=== PATIENT | female | born 1975 | race Two or more races ===

== ENCOUNTER 2018-01-19 14:00 | Outpatient (AMBR) | payer MEDICAID, SELFPAY ==
--- NOTE | 2018-01-12 11:56 | PT.ODAYNRPT ---
PT Outpatient Daily Note Date of Service: January 12, 2018 OP Daily Note Visit Reasons: left shoulder Outpatient Physical Therapy Treatment Date: 01/12/18 Subjective: pt reported taking pain meds prior to coming to PT. Objective: see flow sheet. Assessment: pt was having some pain and discomfort during ther ex but was able to manage through all exercises. noted full ROM in all planes but still had the pain. some muscle fatigue after completed sets but refused ice pack post ther ex. advised pt to use ice pack at home if needed. educated pt about possible soreness. Plan: continue POC per PT. Length of Time (minutes) of Treatment: 30 Minutes Office Procedures PT Procedures PT Date of Service: 01/12/18 Therapeutic Exercise 30 minutes: Yes
--- NOTE | 2018-01-19 14:38 | PT.ODAYNRPT ---
PT Outpatient Daily Note Date of Service: January 19, 2018 OP Daily Note Visit Reasons: left shoulder Outpatient Physical Therapy Treatment Date: 01/19/18 Subjective: pt very shy upon visit and has very little to none feedback. pt does have to work after treatment. Objective: see flow sheet. Assessment: pt has facial expressions during ther ex but states she can tolerate them. rest breaks in between reps to help with the discomfort. pt is using RTB for exercises and has the ROM but the pain limits her endurance with keep up with her ADLs. ice pack pos ther ex to decrease the pain and discomfort. pt enjoyed the ice pack and advised her to use at home if needed. Plan: continue POC per PT. Length of Time (minutes) of Treatment: 30 Minutes Office Procedures PT Procedures PT Date of Service: 01/12/18 Therapeutic Exercise 30 minutes: Yes PT Procedures PT Date of Service: 01/19/18 Therapeutic Exercise 30 minutes: Yes
== END 2018-01-25 23:59 ==
PROVIDERS: PCP Physician Assistant; Referring Provider Physician Assistant; Visit Provider Physician Assistant
DX: I10 Essential (primary) hypertension (principal)
CPT/HCPCS: 97110

== ENCOUNTER 2024-11-25 08:06 | Emergency (ER) | payer MEDICAID, SELFPAY ==
[2024-11-25 08:07] VITALS: BMI 41.0
--- NOTE | 2024-11-25 08:12 | XR_ITS ---
Examination: Chest PA lateral 2 views Technique: Upright PA lateral chest 2 views Exam date and time: November 25, 2024 at 0835 hours Comparison October 22, 2021 INDICATIONS: Coughing shortness of breath 2 days ago. FINDINGS: Stable small granuloma left upper lobe Normal heart size No pneumonia or pulmonary edema IMPRESSION: No active disease
[2024-11-25 08:16] VITALS: BP 127/83; PULSE 85; RESP 17; TEMP 36.7; O2SAT 95
--- NOTE | 2024-11-25 09:21 | EDNOTE_ITS ---
<Statement entered by Paloma Boss MD - 12/02/24 06:25> As co-signing physician, I was present and available for consult prn. I concur with the plan and care as documented by the midlevel provider. Upper Respiratory Inf. RME/HPI General Chief Complaint: Flu Like Symptoms Stated Complaint: COUGH, WHEEZING AND CHEST PAIN WITH COUGH X2D Time Seen by Provider: 11/25/24 08:12 Arrival date/time: 11/25/24 08:06 49-year-old female presents to the emergency department today for complaints of cough, congestion and wheezing ongoing for the last couple of days patient reports no fever nausea or vomiting Limitations: no limitations Related Data Home Medications ?Medication ?Instructions ?Recorded ?Confirmed ergocalciferol (vitamin D2) 1,250 1,250 mcg PO QWEEK 0 04/11/22 04/11/22 mcg (50,000 unit) capsule (Vitamin D2) levothyroxine 50 mcg tablet 50 mcg PO QDAY 04/11/22 Previous Rx's ?Medication ?Instructions ?Recorded docusate sodium 100 mg capsule 100 mg PO BID #40 caps 04/12/22 (Colace) ibuprofen 600 mg tablet 600 mg PO Q8H PRN pain (scal e 04/12/22 score 4-6) #15 tabs tramadol 100 mg tablet 100 mg PO Q6H PRN pain (scal e 04/12/22 score 7-10) #20 tabs albuterol sulfate 90 mcg/actuation 2 puff inhalation Q 6H PRN 11/25/24 aerosol inhaler (Ventolin HFA) shortness of breath or wheezing #8.5 grams benzonatate 100 mg capsule 100 mg PO TID #14 caps 10/28 09/21 prednisone 10 mg tablet 30 mg (3 x 10 mg) PO BID 3 d ays 11/25/24 #18 tabs Allergies Allergy/AdvReac Type Severity Reaction Status Date / Time hydrocodone Allergy Intermediate Vomiting Verified 11/25/24 08:08 metoclopramide (From Reglan) Allergy Verified 11/25/24 08:08 Review of Systems Review of Systems Systems Reviewed: All systems reviewed, normal except as documented Constitutional Constitutional: Reports system reviewed and no additional complaints, except as documented, Denies fever(s) and Denies headache(s) Eyes Eyes: Reports system reviewed and no additional complaints, except as documented and Denies blurry vision ENT Ears, Nose, Mouth, and Throat: Reports system reviewed and no additional complaints, except as documented, Denies headache(s), Denies nasal congestion and Denies nasal discharge Cardiovascular Cardiovascular: Reports system reviewed and no additional complaints, except as documented, Denies chest pain and Denies dyspnea Respiratory Respiratory: Reports system reviewed and no additional complaints, except as documented, Reports chest congestion, Reports cough and Denies dyspnea Gastrointestinal Gastrointestinal: Reports system reviewed and no additional complaints, except as documented and Denies abdominal pain Integumentary/Breasts Skin/Breast: Reports system reviewed and no additional complaints, except as documented and Denies rash Neurologic Neurologic: Reports system reviewed and no additional complaints, except as documented, Reports as per HPI and Denies headache(s) Past Medical History Past Medical History NEUROLOGIC: Positive Neurological Disorders and Migraine (TAKES MED); Negative Seizures CARDIAC: Negative Cardiac Disorders, Congestive Heart Failure, Edema, Cellulitis or Varicose Veins RESPIRATORY: Negative Chronic Obstructive Pulmonary Disease (COPD) GASTROINTESTINAL: Positive Gastrointestinal Disorders and Gall Bladder Disease (FOR THIS PROC); Negative Hepatitis GENITOURINARY: Negative Genitourinary Disorders or Renal Disease REPRODUCTIVE: Positive Previous Pregnancies (X2) MUSCULOSKELETAL: Negative Musculoskeletal Disorders ENDOCRINE: Positive Endocrine Disorders, Diabetes Mellitus Type 2 (NO MED) and Hypothyroidism (TAKES MED); Negative Diabetes Mellitus Type 1 HEMATOLOGIC: Negative Blood Disorders OTHER HISTORY: Positive Chicken Pox; Negative Hospitalization, Autoimmune Disease, Shingles, Falls, Blood Transfusions, Anesthesia Reactions, Chemotherapy, Radiation Therapy, MRSA, Measles, Mumps or Cancer Family History FAMILY HISTORY: Positive Family Cardiac Disorders (mother (htn)) and Family Surgery ([facility]); Negative Family Psychiatric Problems, Family Respiratory Disorders, Family Gastrointestinal Problems, Family Cancer or Family Anesthesia Reaction Surgical History SURGICAL: Positive Ear Surgery ([facility]); Negative Cardiac Surgery or Pacemaker Social History SMOKING STATUS: Never smoker ED Exam General Limitations: Present no limitations General appearance: Present alert and in no apparent distress Head Head exam: Present atraumatic, normocephalic and normal inspection Eye Eye exam: Present normal appearance, PERRL and EOMI; Absent conjunctival injection ENT ENT exam: Present normal exam, normal oropharynx and mucous membranes moist Neck Neck exam: Present normal inspection, full ROM and trachea midline Chest Chest inspection: Present normal inspection and symmetric chest wall rise Respiratory Respiratory exam: Present normal lung sounds bilaterally; Absent respiratory distress, wheezes, stridor, accessory muscle use or prolonged expiratory phase Cardiovascular Cardiovascular exam: Present regular rate, normal rhythm and normal heart sounds Abdominal Exam Abdominal exam: Present soft and normal bowel sounds; Absent distention, tenderness, guarding or rebound Extremities Exam Extremities exam: Present normal inspection and full ROM Back Exam Back exam: Present normal inspection and full ROM Neurological Exam Neurological exam: Present alert, oriented X3 and CN II-XII intact Psychiatric Psychiatric exam: Present normal affect and normal mood Skin Skin exam: Present warm, dry, intact and normal color Course Quality Measures none Orders Category Date Time Status Bedside Influenza A&B Antigen Test NOW Care 11/25/24 08:12 Completed XR chest 2V Stat Exams 11/25/24 08:12 Completed Vital Signs Vital signs: Vital Signs Temperature 98.1 F 11/25/24 08:16 Pulse Rate 85 11/25/24 08:16 Respiratory Rate 17 11/25/24 08:16 Blood Pressure 127/83 11/25/24 08:16 Pulse Oximetry (%) 95 11/25/24 08:16 Oxygen Delivery Method Room Air 11/25/24 08:16 O2 saturation 95% on room air within the limits Upper Respiratory Infection MDM Narrative MDM Narrative:: 49-year-old female presents to the emergency department today for complaints of cough, congestion and wheezing ongoing for the last couple of days patient reports no fever nausea or vomiting On exam patient well-appearing patient's not appear ill or toxic patient hemodynamically stable no difficulty breathing Lab work and imaging obtained no acute emergent findings noted Patient discharged home in no distress to follow-up with primary care doctor in the next 24 to 48 hours and for any worsening symptoms to return to the ER immediately Patient data External records reviewed:: [facility] previous records Clinical information provided by:: patient Social determinants that could affect healthcare access:: none Patient has the following chronic illnesses:: None How is presenting disease/condition affected by chronic disease/condition?: no chronic disease Evaluation data The following diagnostics were reviewed and interpreted by me:: lab results and radiology exam(s) Lab and/or radiology exams considered but not ordered:: Labs and radiology obtained Interpretation Summary: Reviewed by me Medications / Prescriptions Medications or Prescriptions considered but not ordered:: Given Medication administrations:: Given Consultations Consultation(s) initiated? (list below): No Diagnosis Upper Respiratory Differential Diagnosis: upper respiratory infection, sinusitis, viral infection and bronchitis Most likely diagnosis given after review of the tests above:: URI Admission Indicated Admission indicated?: not indicated Admission Request Was there a request for admission?: No Disposition Plan Disposition Plan: Discharge Discharge Attestation Discharge Attestation: The patient and all family members were given an opportunity to ask questions and understood the discharge instructions. Discharge instructions specifically effects, indications for sooner follow up or return to the emergency department, and the expected course of current diagnosis. Patient condition: Stable Discharge Plan Plan Patient Disposition: HOME (Self Care) Disposition Comment: Stable Prescriptions/Referrals Prescriptions/Med Rec: New benzonatate 100 mg capsule 100 mg PO TID Qty: 14 0RF albuterol sulfate [Ventolin HFA] 90 mcg/actuation HFA aerosol inhaler 2 puff inhalation Q6H PRN (Reason: shortness of breath or wheezing) Qty: 8.5 0RF prednisone 10 mg tablet 30 mg PO BID 3 Days Qty: 18 0RF No Action levothyroxine 50 mcg Tablet 50 mcg PO QDAY ergocalciferol (vitamin D2) [Vitamin D2] 1,250 mcg (50,000 unit) Capsule 1,250 mcg PO QWEEK tramadol 100 mg tablet 100 mg PO Q6H MDD 3 PRN (Reason: pain (scale score 7-10)) Qty: 20 0RF docusate sodium [Colace] 100 mg capsule 100 mg PO BID Qty: 40 0RF ibuprofen 600 mg tablet 600 mg PO Q8H PRN (Reason: pain (scale score 4-6)) Qty: 15 0RF Referrals: Jennifer Tucker NP [Primary Care Provider] - 11/26/24 Problem List Clinical Impression: Cough, Wheezing Patient/Caregiver Discharge Instructions Education Materials: ED Cough Chronic Uncertain Cause Adult Additional Instructions: Please follow up with your primary care doctor in the next 24-48hrs for any worsening symptoms return here immediately Print Language: Belarusian Stand Alone Forms: [employer] Work/School Release, Patient Portal Info Letter PA/MANUFACTURING LABORER Supervising Physician PA/MANUFACTURING LABORER Supervising Physician: Dr. boss
== END 2024-11-25 09:47 | disposition home or self-care (01) ==
PROVIDERS: Emergency Provider Emergency Medicine; PCP Nurse Practitioner Family
DX: R05.9 Cough, unspecified (principal); R06.2 Wheezing; R06.02 Shortness of breath
CPT/HCPCS: 71046; 87400; 99283

== ENCOUNTER → 2025-01-29 | Outpatient (CLI) | payer MEDICAID, SELFPAY ==
--- NOTE | 2025-01-29 09:30 | XR_ITS ---
Examination: Screening digital mammography, bilateral Computer aided detection 3-D breast Tomosynthesis, bilateral Date and time of exam: January 29, 2025 0940 hours Comparison December 29, 2016 Indication: Screening Technique: Nonmagnified MLO, CC views of the breasts to been obtained, reconstructed from 3-D Tomosynthesis images. R2 computer aided detection program utilized for evaluation of suspicious masses and/or abnormal calcifications. 3-D Tomosynthesis images obtained. Findings: Scattered areas of fibroglandular density More prominent focal asymmetry 30 mm in the retroareolar region left breast Benign calcifications Impression: BI-RADS Category 0: Incomplete: Need additional imaging evaluation Recommend follow-up spot tomographic views of focal asymmetry retroareolar region left breast as well as left breast sonography to complete the workup.
== END | disposition home or self-care (01) ==
LOC: CDIM 09:27
PROVIDERS: Referring Provider Nurse Practitioner Family; Visit Provider Nurse Practitioner Family
DX: Z12.31 Encounter for screening mammogram for malignant neoplasm of breast (principal); N64.89 Other specified disorders of breast
CPT/HCPCS: 77063; 77067

== ENCOUNTER → 2025-02-20 | Outpatient (CLI) | payer MEDICAID, SELFPAY ==
--- NOTE | 2025-02-20 12:30 | XR_ITS ---
Examination: Breast ultrasound, unilateral, left complete Date and time of exam: February 20, 2025 1223 hours INDICATIONS: Left breast pain one year, mammogram January 29, 2025 focal asymmetry retroareolar region left breast, family history breast cancer Technique: Real-time vanessa scale ultrasonographic imaging performed left breast including all 4 quadrants as well as nipple retroareolar and axillary region. Findings: Dilated ducts in the retroareolar region left breast IMPRESSION: BI-RADS Category 2: Benign findings
--- NOTE | 2025-02-20 13:00 | XR_ITS ---
Examination: Diagnostic digital mammography, unilateral, left Computer aided detection 3-D breast Tomosynthesis, unilateral Date and time of exam: 02/20/2025 at 1241 hours INDICATIONS: Mammogram January 29, 2025 30 mm focal asymmetry retroareolar region left breast Technique: Nonmagnified MLO, CC views of the left breast have been obtained, reconstructed from 3-D Tomosynthesis images. R2 computer aided detection program utilized for evaluation of suspicious masses and/or abnormal calcifications. 3-D Tomosynthesis images obtained. Findings: Scattered areas of fibroglandular density No suspicious masses Impression: BI-RADS category 2: Benign findings Return to yearly follow-up mammography
== END | disposition home or self-care (01) ==
LOC: CDIM 12:08
PROVIDERS: PCP Nurse Practitioner Family; Referring Provider Nurse Practitioner Family; Visit Provider Nurse Practitioner Family
DX: R92.322 Mammographic fibroglandular density, left breast (principal); N64.89 Other specified disorders of breast; R92.8 Other abnormal and inconclusive findings on diagnostic imaging of breast
CPT/HCPCS: 76641; 77061; 77065; G0279

== ENCOUNTER 2025-02-24 13:58 | Emergency (ER) | payer MEDICAID, SELFPAY ==
[2025-02-24 14:26] VITALS: BP 122/85; PULSE 100; RESP 18; TEMP 37.1; O2SAT 97
--- NOTE | 2025-02-24 15:20 | PD.EDEAR ---
ED Ear RME/HPI General Chief complaint: Ear Stated complaint: Left ear pain X 4 months Time Seen by Provider: 02/24/25 14:27 Arrival date/time: 02/24/25 13:58 RME / HPI RME / HPI Narrative: ear pain X 4 months, worse in the last 2 days no drainage or loss of hearing Related Data Home Medications ?Medication ?Instructions ?Recorded ?Confirmed ergocalciferol (vitamin D2) 1,250 1,250 mcg PO QWEEK 04/11/22 04/11/22 mcg (50,000 unit) capsule (Vitamin D2) levothyroxine 50 mcg tablet 50 mcg PO QDAY 04/11/22 04/11/22 Previous Rx's ?Medication ?Instructions ?Recorded docusate sodium 100 mg capsule 100 mg PO BID #40 caps 04/12/22 (Colace) ibuprofen 600 mg tablet 600 mg PO Q8H PRN pain (scale 04/12/22 score 4-6) #15 tabs tramadol 100 mg tablet 100 mg PO Q6H PRN pain (scale 04/12/22 score 7-10) #20 tabs albuterol sulfate 90 mcg/actuation 2 puff inhalation Q6H PRN 11/25/24 aerosol inhaler (Ventolin HFA) shortness of breath or wheezing #8.5 grams benzonatate 100 mg capsule 100 mg PO TID #14 caps 11/25/24 ibuprofen 600 mg tablet 600 mg PO Q8H PRN pain #30 tabs 02/24/25 tramadol 50 mg tablet 50 mg PO BID PRN pain #10 tabs 02/24/25 Allergies Allergy/AdvReac Type Severity Reaction Status Date / Time hydrocodone Allergy Intermediate Vomiting Verified 02/24/25 14:02 metoclopramide (From Reglan) Allergy Verified 02/24/25 14:02 Review of Systems Review of Systems Systems Reviewed: All systems reviewed, normal except as documented Constitutional Constitutional: Reports system reviewed and no additional complaints, except as documented Eyes Eyes: Reports system reviewed and no additional complaints, except as documented ENT Ears, Nose, Mouth, and Throat: Reports system reviewed and no additional complaints, except as documented Cardiovascular Cardiovascular: Reports system reviewed and no additional complaints, except as documented Respiratory Respiratory: Reports system reviewed and no additional complaints, except as documented Gastrointestinal Gastrointestinal: Reports system reviewed and no additional complaints, except as documented Musculoskeletal Musculoskeletal: Reports system reviewed and no additional complaints, except as documented Neurologic Neurologic: Reports system reviewed and no additional complaints, except as documented Psychiatric Psychiatric: Reports system reviewed and no additional complaints, except as documented Endocrine Endocrine: Reports system reviewed and no additional complaints, except as documented Hematologic/Lymphatic Hematologic/Lymphatic: Reports system reviewed and no additional complaints, except as documented ED Exam General General appearance: Present alert and in no apparent distress Head Head exam: Present atraumatic and normocephalic ENT ENT exam: Present normal exam, normal oropharynx, mucous membranes moist, mucous membranes dry, TM's normal bilaterally and normal external ear exam Neck Neck exam: Present normal inspection and full ROM Respiratory Respiratory exam: Present normal lung sounds bilaterally Cardiovascular Cardiovascular exam: Present regular rate and normal rhythm Neurological Exam Neurological exam: Present alert and oriented X3 Psychiatric Psychiatric exam: Present normal affect and normal mood Skin Skin exam: Present warm and dry Course Quality Measures none Orders Category Date Time Status Ketorolac Inj [Toradol Inj] Med 02/24/25 15:19 Discontinued 60 mg IM X1 ONE predniSONE Med 02/24/25 15:19 Discontinued 20 mg PO X1 ONE Vital Signs Vital signs: Vital Signs Temperature 98.8 F 02/24/25 14:26 Pulse Rate 100 02/24/25 14:26 Respiratory Rate 18 02/24/25 14:26 Blood Pressure 122/85 H 02/24/25 14:26 Pulse Oximetry (%) 97 02/24/25 14:26 Oxygen Delivery Method Room Air 02/24/25 14:26 Ear MDM Narrative MDM Narrative:: etiology of patient's pain is idiopathic patient encouraged to see PCP for ENT referral Patient data External records reviewed:: None Clinical information provided by:: patient Social determinants that could affect healthcare access:: none Patient has the following chronic illnesses:: chronic ear pain How is presenting disease/condition affected by chronic disease/condition?: caused by Evaluation data The following diagnostics were reviewed and interpreted by me:: other (specify) (n/a) Lab and/or radiology exams considered but not ordered:: na Interpretation Summary: na Medications / Prescriptions Medications or Prescriptions considered but not ordered:: prescription considered and ordered Medication administrations:: Medication Administration History Discontinued Medications Ketorolac Tromethamine (Ketorolac Inj 60 Mg/2 Ml Vial) 60 mg IM X1 ONE Stop: 02/24/25 15:20 Last Admin: 02/24/25 15:32 Dose: 60 mg Documented By: SWATHI Prednisone (Prednisone 20 Mg Tablet) 20 mg PO X1 ONE Stop: 02/24/25 15:20 Last Admin: 02/24/25 15:31 Dose: 20 mg Documented By: SWATHI per above Consultations Consultation(s) initiated? (list below): No Diagnosis Ear Differential Diagnosis: otitis externa, otitis media, foreign body in ear, ruptured TM and cerumen impaction Most likely diagnosis given after review of the tests above:: ear pain Admission Indicated Admission indicated?: not indicated Explain why admission is indicated or not indicated:: no life threatening emergency noted Admission Request Was there a request for admission?: No Disposition Plan Disposition Plan: Discharge Discharge Attestation Discharge Attestation: The patient and all family members were given an opportunity to ask questions and understood the discharge instructions. Discharge instructions specifically effects, indications for sooner follow up or return to the emergency department, and the expected course of current diagnosis. Patient condition: Stable Discharge Plan Plan Patient Disposition: HOME (Self Care) Prescriptions/Referrals Prescriptions/Med Rec: New ibuprofen 600 mg tablet 600 mg PO Q8H PRN (Reason: pain) Qty: 30 0RF tramadol 50 mg tablet 50 mg PO BID PRN (Reason: pain) Qty: 10 0RF No Action levothyroxine 50 mcg Tablet 50 mcg PO QDAY ergocalciferol (vitamin D2) [Vitamin D2] 1,250 mcg (50,000 unit) Capsule 1,250 mcg PO QWEEK tramadol 100 mg tablet 100 mg PO Q6H MDD 3 PRN (Reason: pain (scale score 7-10)) Qty: 20 0RF docusate sodium [Colace] 100 mg capsule 100 mg PO BID Qty: 40 0RF ibuprofen 600 mg tablet 600 mg PO Q8H PRN (Reason: pain (scale score 4-6)) Qty: 15 0RF benzonatate 100 mg capsule 100 mg PO TID Qty: 14 0RF albuterol sulfate [Ventolin HFA] 90 mcg/actuation HFA aerosol inhaler 2 puff inhalation Q6H PRN (Reason: shortness of breath or wheezing) Qty: 8.5 0RF Problem List Clinical Impression: Chronic left ear pain Patient/Caregiver Discharge Instructions Education Materials: ED Chronic Pain, ED Earache Without Infection (Adult) Print Language: Vietnamese Stand Alone Forms: [employer] Work/School Release, Patient Portal Info Letter
[2025-02-24] MEDS: predniSONE 20 MG TABLET PO (15:31)
[2025-02-24] MEDS: KETOROLAC INJ 60 MG/2 ML VIAL IM (15:32)
== END 2025-02-24 18:20 | disposition home or self-care (01) ==
LOC: SERX 15:49
PROVIDERS: Emergency Provider Emergency Medicine; PCP Nurse Practitioner Family
DX: H92.02 Otalgia, left ear (principal); G89.29 Other chronic pain
CPT/HCPCS: 96372; 99283; J1885; J7512